=== PATIENT | male | born 1995 | race Hispanic/Latino ===

== ENCOUNTER 2018-06-27 12:42 | Emergency (ER) | payer OTHER, SELFPAY ==
[2018-06-27] MEDS ORDERED: FLUORESCEIN SODIUM 0.6 MG/WRAP ONE ×2 (13:14→13:34)
[2018-06-27] MEDS ORDERED: TETRACAINE HCL 0.5% 2ML OPTH ONE (13:14)
[2018-06-27] MEDS ORDERED: TETANUS & DIPHTHERIA TOX,ADULT 0.5 ML VIAL ONE (13:37)
--- NOTE | 2018-06-27 13:55 | EDPHYS ---
Physician Documentation [facility] Name: Myles Eddy Age: 23 yrs Sex: Male : 1995 Arrival Date: 06/27/2018 Time: 12:45 Bed 23 Private MD: ED Physician Ronald Rice HPI: 06/27 15:37 This 23 yrs old Male presents to ER via Ambulatory with complaints of Eye Pain.pm1 15:37 The patient is experiencing pain, to both eyes, caused by contact lens. Onset: The pm1 symptoms/episode began/occurred this morning. Duration: the symptoms are continuous. Aggravated by nothing. Alleviated by nothing. Associated signs and symptoms: Pertinent negatives: chills, dizziness, ear ache, fever, headache, runny nose. Patient wears soft contacts. Severity of symptoms: in the emergency department the symptoms are worse. The patient has not experienced similar symptoms in the past. Patient slept with his soft contact lens in place and woke up with bilateral eye pain. Left eye worse than right eye. Historical: - Allergies: 13:00 No Known Allergies; aj - Home Meds: 13:00 None [Active]; aj - PMHx: 13:00 None; aj - PSHx: 13:00 None; aj - Immunization history:: Adult Immunizations up to date. - Social history:: Smoking status: Patient uses tobacco products, denies chronic smoking, but will smoke occasionally, Patient uses alcohol, occasionally. - Ebola Screening: : Patient negative for fever greater than or equal to 101.5 degrees Fahrenheit, and additional compatible Ebola Virus Disease symptoms Patient denies exposure to infectious person Patient denies travel to an Ebola-affected area in the 21 days before illness onset No symptoms or risks identified at this time. ROS: 15:37 Constitutional: Negative for fever, chills, and weight loss. pm1 15:37 ENT: Negative for injury, pain, and discharge, Neck: Negative for injury, pain, and swelling, Cardiovascular: Negative for chest pain, palpitations, and edema, Respiratory: Negative for shortness of breath, cough, wheezing, and pleuritic chest pain, Abdomen/GI: Negative for abdominal pain, nausea, vomiting, diarrhea, and constipation, Back: Negative for injury and pain, MS/Extremity: Negative for injury and deformity, Skin: Negative for injury, rash, and discoloration, Neuro: Negative for headache, weakness, numbness, tingling, and seizure. 15:37 Eyes: Positive for pain, of the right eye and left eye. Exam: 15:37 Visual Acuity: I have reviewed the nursing documentation. pm1 15:37 Constitutional: This is a well developed, well nourished patient who is awake, alert, and in no acute distress. Head/Face: Normocephalic, atraumatic. 15:37 ENT: Nares patent. No nasal discharge, no septal abnormalities noted. Tympanic membranes are normal and external auditory canals are clear. Oropharynx with no redness, swelling, or masses, exudates, or evidence of obstruction, uvula midline. Mucous membranes moist. Neck: Trachea midline, no thyromegaly or masses palpated, and no cervical lymphadenopathy. Supple, full range of motion without nuchal rigidity, or vertebral point tenderness. No Meningismus. Chest/axilla: Normal chest wall appearance and motion. Nontender with no deformity. No lesions are appreciated. Cardiovascular: Regular rate and rhythm with a normal S1 and S2. No gallops, murmurs, or rubs. Normal PMI, no JVD. No pulse deficits. Respiratory: Lungs have equal breath sounds bilaterally, clear to auscultation and percussion. No rales, rhonchi or wheezes noted. No increased work of breathing, no retractions or nasal flaring. Abdomen/GI: Soft, non-tender, with normal bowel sounds. No distension or tympany. No guarding or rebound. No evidence of tenderness throughout. Back: No spinal tenderness. No costovertebral tenderness. Full range of motion. Skin: Warm, dry with normal turgor. Normal color with no rashes, no lesions, and no evidence of cellulitis. MS/ Extremity: Pulses equal, no cyanosis. Neurovascular intact. Full, normal range of motion. 15:37 Eyes: Periorbital structures: appear normal, Pupils: no acute changes, equal, round, and reactive to light and accomodation, Extraocular movements: no acute changes, Conjunctiva: injected, bilaterally, Corneas: abrasion, that is small, on the left, at 9 o'clock, foreign body, is not appreciated, a fluorescein strip employed to appreciate the findings, Sclera: no appreciated abnormality, Anterior chamber: normal, Lids and lashes: appear normal. 15:37 Neuro: Orientation: is normal, Motor: is normal, Sensation: is normal, no obvious gross deficits. Vital Signs: 13:00 BP 163 / 85; Pulse 91; Resp 16; Temp 97.2; Pulse Ox 99% on R/A; Weight 117.93 kg; aj Height 5 ft. 11 in. (180.34 cm); 14:16 BP 143 / 101; Pulse 93; Resp 18; Pulse Ox 99% on R/A; tl3 13:00 Body Mass Index 36.26 (117.93 kg, 180.34 cm) aj Visual Acuity: 13:41 Left Eye Visual acuity 20/40, ; Right Eye Visual acuity 20/40, ; Both Eyes Visual tl3 acuity 20/30; Without Lenses; MDM: 13:10 Patient medically screened. pm1 13:51 Data reviewed: vital signs. Data interpreted: Pulse oximetry: on room air is 99 %. pm1 Interpretation: normal. Counseling: I had a detailed discussion with the patient and/or guardian regarding: the historical points, exam findings, and any diagnostic results supporting the discharge/admit diagnosis, the need for outpatient follow up, for definitive care, an opthalmologist. 06/27 13:26 Order name: Visual Acuity; Complete Time: 13:41 pm1 06/27 13:26 Order name: Eye Tray; Complete Time: 13:35 pm1 Administered Medications: 13:19 Drug: Tetracaine Drops 0.5 % 1 drops Route: Ophthalmic; Site: both eyes; tl3 13:36 Follow up: Response: Marked relief of symptoms tl3 13:25 Drug: Fluorescein Strip 1 strip Route: Ophthalmic; Site: both eyes; tl3 13:37 Follow up: Response: No adverse reaction tl3 13:35 Drug: Tetanus-Diphtheria Toxoid Adult 0.5 ml {Product Merchandiser: [employer] ([address] Exp: tl3 08/28/2020. Lot #: [id number]. } Route: IM; Site: left deltoid; 13:36 Follow up: Response: No adverse reaction tl3 Disposition: 16:02 Co-signature as Attending Physician, Ronald Rice MD. rn Disposition: 06/27/18 13:54 Discharged to Home. Impression: Injury of conjunctiva and corneal abrasion without foreign body, left eye. - Condition is Stable. - Discharge Instructions: Corneal Abrasion. - Prescriptions for Tylenol- Codeine #3 300-30 mg Oral Tablet - take 2 tablets by ORAL route every 6 hours As needed; 12 tablet. Vigamox 0.5 % Ophthalmic Drops - instill 1 drop by OPHTHALMIC route every 8 hours for 7 days; 5 milliliter. - Medication Reconciliation Form, Thank You Letter, Antibiotic Education, Prescription Opioid Use, Work release form form. - Follow up: Emergency Department; When: As needed; Reason: Worsening of condition. Follow up: Yehuda French MD; When: 1 - 2 days; Reason: Recheck today's complaints, Continuance of care, Re-evaluation by your physician. - Problem is new. - Symptoms have improved. Signatures: Chari Sainz, RN RN Ronald Knight MD MD rn Marinas, Patrick, STAGE PRODUCER STAGE PRODUCER pm1 Mala Celaya RN RN tl3 Corrections: (The following items were deleted from the chart) 14:18 13:54 06/27/2018 13:54 Discharged to Home. Impression: Injury of conjunctiva and tl3 corneal abrasion without foreign body, left eye. Condition is Stable. Forms are Medication Reconciliation Form, Thank You Letter, Antibiotic Education, Prescription Opioid Use. Follow up: Emergency Department; When: As needed; Reason: Worsening of condition. Follow up: Yehuda French; When: 1 - 2 days; Reason: Recheck today's complaints, Continuance of care, Re-evaluation by your physician. Problem is new. Symptoms have improved. pm1
--- NOTE | 2018-06-27 13:55 | ER ---
Nurse's Notes [facility] Name: Myles Eddy Age: 23 yrs Sex: Male : 1995 Arrival Date: 06/27/2018 Time: 12:45 Bed 23 Private MD: Diagnosis: Injury of conjunctiva and corneal abrasion without foreign body, left eye Presentation: 06/27 12:59 Presenting complaint: Patient states: Bilateral eye discomfort and redness since this aj AM. "I fell asleep with my contacts in and now my eyes burn.". Transition of care: patient was not received from another setting of care. Mechanism of Injury: No Mechanism of Injury. The patient denies any loss of vision. Onset of symptoms was June 27, 2018. Risk Assessment: Do you want to hurt yourself or someone else? Patient reports no desire to harm self or others. Initial Sepsis Screen: Does the patient meet any 2 criteria? No. Patient's initial sepsis screen is negative. Does the patient have a suspected source of infection? No. Patient's initial sepsis screen is negative. Care prior to arrival: None. 12:59 Method Of Arrival: Ambulatory 12:59 Acuity: SAMINA 4 aj Triage Assessment: 13:00 General: Appears in no apparent distress. comfortable, Behavior is calm, cooperative, aj appropriate for age. Pain: Complains of pain in right eye and left eye. EENT: Sclera/Cornea are reddened in outer aspect of conjuctiva of right eye, iris of right eye, inner aspect of conjuctiva of right eye, outer aspect of conjuctiva of left eye, iris of left eye and inner aspect of conjunctiva of left eye Reports pain in right eye and left eye. Neuro: Level of Consciousness is awake, alert, obeys commands, Oriented to person, place, time, situation, Appropriate for age. Respiratory: Airway is patent Respiratory effort is even, unlabored, Respiratory pattern is regular, symmetrical. Derm: Skin is intact, is healthy with good turgor, Skin is pink, warm \\T\\ dry. normal. Historical: - Allergies: 13:00 No Known Allergies; aj - Home Meds: 13:00 None [Active]; aj - PMHx: 13:00 None; aj - PSHx: 13:00 None; aj - Immunization history:: Adult Immunizations up to date. - Social history:: Smoking status: Patient uses tobacco products, denies chronic smoking, but will smoke occasionally, Patient uses alcohol, occasionally. - Ebola Screening: : Patient negative for fever greater than or equal to 101.5 degrees Fahrenheit, and additional compatible Ebola Virus Disease symptoms Patient denies exposure to infectious person Patient denies travel to an Ebola-affected area in the 21 days before illness onset No symptoms or risks identified at this time. Screenin:20 Abuse screen: Denies threats or abuse. Nutritional screening: No deficits noted. tl3 Tuberculosis screening: No symptoms or risk factors identified. Fall Risk None identified. Assessment: 13:13 General: Appears uncomfortable, well groomed, well developed, well nourished, Behavior tl3 is calm, cooperative, appropriate for age. Pain: Complains of pain in inner aspect of conjunctiva of left eye and outer aspect of conjuctiva of left eye and inner aspect of conjuctiva of right eye and outer aspect of conjuctiva of right eye. Pain: Pain began 1 day ago. Neuro: No deficits noted. Level of Consciousness is awake, alert, obeys commands, Oriented to person, place, time, situation, Appropriate for age. Cardiovascular: Patient's skin is warm and dry. Respiratory: Airway is patent. GI: No signs and/or symptoms were reported involving the gastrointestinal system. : No signs and/or symptoms were reported regarding the genitourinary system. EENT: Eyes are tearing on outer aspect of conjuctiva of right eye, inner aspect of conjuctiva of right eye, outer aspect of conjuctiva of left eye and inner aspect of conjunctiva of left eye Reports slept with contacts in, removed yesterday and eyes are still painful. Derm: No signs and/or symptoms reported regarding the dermatologic system. Musculoskeletal: No signs and/or symptoms reported regarding the musculoskeletal system. 14:16 Reassessment: Patient appears in no apparent distress at this time. Patient and/or tl3 family updated on plan of care and expected duration. Pain level reassessed. Patient is alert, oriented x 3, equal unlabored respirations, skin warm/dry/pink. Vital Signs: 13:00 BP 163 / 85; Pulse 91; Resp 16; Temp 97.2; Pulse Ox 99% on R/A; Weight 117.93 kg; aj Height 5 ft. 11 in. (180.34 cm); 14:16 BP 143 / 101; Pulse 93; Resp 18; Pulse Ox 99% on R/A; tl3 13:00 Body Mass Index 36.26 (117.93 kg, 180.34 cm) Visual Acuity: 13:41 Left Eye Visual acuity 20/40, ; Right Eye Visual acuity 20/40, ; Both Eyes Visual tl3 acuity 20/30; Without Lenses; ED Course: 12:45 Patient arrived in ED. rg4 13:00 Triage completed. aj 13:00 Arm band placed on right wrist. Patient placed in waiting room, Patient notified of wait time. 13:05 Curtis Zuniga NP is PHCP. pm1 13:05 Ronald Rice MD is Attending Physician. pm1 13:13 Mala Celaya RN is Primary Nurse. tl3 13:20 Patient has correct armband on for positive identification. Bed in low position. tl3 13:20 No provider procedures requiring assistance completed. Patient did not have IV access tl3 during this emergency room visit. 13:54 Yehuda French MD is Referral Physician. 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 Exp: tl3 08/28/2020. Lot #: [id number]. } Route: IM; Site: left deltoid; 13:36 Follow up: Response: No adverse reaction tl3 Outcome: 13:54 Discharge ordered by MD. pm1 14:16 Discharged to home ambulatory. tl3 14:16 Condition: stable 14:16 Discharge instructions given to patient, Instructed on discharge instructions, follow up and referral plans. medication usage, Demonstrated understanding of instructions, follow-up care, medications, Prescriptions given X 2. 14:18 Patient left the ED. tl3 Signatures: Chari Sainz RN RN aj Marinas, Patrick, NP TEST DRIVER pm1 Eli Quiroz rg4 Mala Celaya RN RN tl3 Corrections: (The following items were deleted from the chart) 13:19 13:18 Fluorescein Strip 1 strip Ophthalmic in both eyes tl3 tl3
== END 2018-06-27 14:18 | disposition home or self-care (01) ==
LOC: ER 12:42
DX: S05.02XA Injury of conjunctiva and corneal abrasion without foreign body, left eye, initial encounter (principal); X58.XXXA Exposure to other specified factors, initial encounter; Y93.89 Activity, other specified; Y92.009 Unspecified place in unspecified non-institutional (private) residence as the place of occurrence of the external cause; Z23 Encounter for immunization
CPT/HCPCS: 90714; 99283

== ENCOUNTER 2019-01-14 17:42 | Emergency (ER) | payer SELFPAY ==
[2019-01-14 18:44] LABS: Absolute Lymphocytes (CBC) 2.8 K/uL (0.7-4.9); Absolute Monocytes 0.5 K/uL (0.1-1.3); Absolute Neutrophil 8.5 K/uL (1.8-8.0); Basophils % 0.8 % (0-1.3); Eosinophils % 1.3 % (0-4.4); Hematocrit 47.9 % (39.6-49.0); Lymphocytes % 23.1 % (15.3-44.8); MPV 9.1 fL (7.6-11.3); Monocytes % 4.1 % (3.3-12.3)
--- NOTE | 2019-01-14 18:45 | RAD REPORT ---
EXAM DESCRIPTION: Serena Single View01/14/2019 6:23 pm CLINICAL HISTORY: cough COMPARISON: none FINDINGS: The lungs appear clear of acute infiltrate. The heart is normal size IMPRESSION: No acute abnormalities displayed
[2019-01-14 19:16] LABS: BUN Blood Urea Nitrogen 7 mg/dL (7-18); Bicarbonate 30 mmol/L (21-32); Glucose Level 224 mg/dL (74-106); NT PRO-BNP 10 pg/mL (<125); Potassium 3.9 mmol/L (3.5-5.1); Sodium Level 140 mmol/L (136-145)
--- NOTE | 2019-01-14 19:26 | ER ---
Nurse's Notes [facility] Name: Myles Eddy Age: 23 yrs Sex: Male : 1995 Arrival Date: 01/14/2019 Time: 17:44 Bed 30 Private MD: Diagnosis: Acute bronchitis;Essential (primary) hypertension Presentation: 01/14 17:46 Presenting complaint: Patient states: Cough for 1 month with sore throat. Transition of care: patient was not received from another setting of care. Onset of symptoms was December 18, 2018. Risk Assessment: Do you want to hurt yourself or someone else? Patient reports no desire to harm self or others. Initial Sepsis Screen: Does the patient meet any 2 criteria? No. Patient's initial sepsis screen is negative. Does the patient have a suspected source of infection? No. Patient's initial sepsis screen is negative. Care prior to arrival: None. 17:46 Method Of Arrival: Ambulatory 17:46 Acuity: SAMINA 3 aj Triage Assessment: 17:48 General: Appears in no apparent distress. comfortable, Behavior is calm, cooperative, aj appropriate for age. Pain: Denies pain. EENT: Reports pain when swallowing. Neuro: Level of Consciousness is awake, alert, obeys commands, Oriented to person, place, time, situation, Appropriate for age. Respiratory: Airway is patent Respiratory effort is even, unlabored, Respiratory pattern is regular, symmetrical. Respiratory: Reports cough that is productive. Derm: Skin is intact, is healthy with good turgor, Skin is pink, warm \T\ dry. normal. Historical: - Allergies: 17:48 No Known Allergies; aj - Home Meds: 17:48 None [Active]; aj - PMHx: 17:48 None; aj - PSHx: 17:48 None; aj - Immunization history:: Adult Immunizations up to date. - Social history:: Smoking status: Patient uses tobacco products, smokes one-half pack cigarettes per day. - Ebola Screening: : Patient negative for fever greater than or equal to 101.5 degrees Fahrenheit, and additional compatible Ebola Virus Disease symptoms Patient denies exposure to infectious person Patient denies travel to an Ebola-affected area in the 21 days before illness onset No symptoms or risks identified at this time. Screenin:55 Abuse screen: Denies threats or abuse. Denies injuries from another. Nutritional rv screening: No deficits noted. Tuberculosis screening: No symptoms or risk factors identified. Fall Risk None identified. Assessment: 17:54 General: Appears in no apparent distress. comfortable, Behavior is calm, cooperative. rv Pain: Denies pain. Neuro: Level of Consciousness is awake, alert, obeys commands, Oriented to person, place, time, situation. Cardiovascular: Capillary refill < 3 seconds. Respiratory: Airway is patent Parent/caregiver reports the patient having cough that is persistent. GI: No signs and/or symptoms were reported involving the gastrointestinal system. : No signs and/or symptoms were reported regarding the genitourinary system. EENT: Reports pain sore throat. Derm: Skin is intact. Musculoskeletal: No signs and/or symptoms reported regarding the musculoskeletal system. Vital Signs: 17:48 BP 153 / 87; Pulse 116; Resp 18; Temp 98.2; Pulse Ox 99% on R/A; Weight 127.01 kg; aj Height 5 ft. 11 in. (180.34 cm); 18:00 BP 149 / 106 LA; Pulse 125; Resp 18 S; Pulse Ox 95% on R/A; rv 18:36 BP 152 / 110 LA Sitting; Pulse 120; Resp 21 S; Pulse Ox 97% on R/A; rv 19:00 BP 153 / 102 RA Sitting; Pulse 125; Resp 12 S; Pulse Ox 97% on R/A; rv 19:07 BP 149 / 106 LA Sitting; Pulse 118; Resp 13 S; Pulse Ox 96% on R/A; rv 17:48 Body Mass Index 39.05 (127.01 kg, 180.34 cm) ED Course: 17:44 Patient arrived in ED. as 17:48 Triage completed. aj 17:48 Arm band placed on right wrist. Patient placed in an exam room. aj 17:52 Daniel García, JC is Primary Nurse. rv 17:55 Wood Parks MD is Attending Physician. gs 17:55 Patient has correct armband on for positive identification. Bed in low position. Call rv light in reach. Side rails up X 1. Pulse ox on. NIBP on. 18:24 XRAY Chest (1 view) In Process Unspecified. EDMS 18:30 Inserted saline lock: 20 gauge in left antecubital area, using aseptic technique. Blood rv collected. 18:48 EKG done, by ED staff, reviewed by Wood Parks MD. kj1 19:25 Grzegorz Luis DO is Referral Physician. gs 19:35 No provider procedures requiring assistance completed. IV discontinued, intact, rv bleeding controlled, No redness/swelling at site. Pressure dressing applied. Administered Medications: No medications were administered Outcome: 19:25 Discharge ordered by MD. gs 19:35 Discharged to home ambulatory. rv 19:35 Condition: good 19:35 Discharge instructions given to patient, Instructed on discharge instructions, follow up and referral plans. medication usage, Demonstrated understanding of instructions, follow-up care, medications, Prescriptions given X 2. 19:35 Patient left the ED. rv Signatures: Dispatcher [employer] EDChari Jimenez, RN RN Nancy Thornton Gregory, MD MD Daniel García RN RN Majo Mcfarland kj1
--- NOTE | 2019-01-14 19:26 | EDPHYS ---
Physician Documentation [facility] Name: Myles Eddy Age: 23 yrs Sex: Male : 1995 Arrival Date: 01/14/2019 Time: 17:44 Bed 30 Private MD: ED Physician Wood Parks HPI: 01/14 19:19 This 23 yrs old Male presents to ER via Ambulatory with complaints of Cough. gs 19:19 Onset: The symptoms/episode began/occurred 1 month(s) ago. Severity of symptoms: At gs their worst the symptoms were moderate, in the emergency department the symptoms are unchanged. Modifying factors: the symptoms are aggravated by smoke. Associated signs and symptoms: Pertinent positives: fever, today only. The patient has experienced similar episodes in the past, a few times. Historical: - Allergies: 17:48 No Known Allergies; aj - Home Meds: 17:48 None [Active]; aj - PMHx: 17:48 None; aj - PSHx: 17:48 None; aj - Immunization history:: Adult Immunizations up to date. - Social history:: Smoking status: Patient uses tobacco products, smokes one-half pack cigarettes per day. - Ebola Screening: : Patient negative for fever greater than or equal to 101.5 degrees Fahrenheit, and additional compatible Ebola Virus Disease symptoms Patient denies exposure to infectious person Patient denies travel to an Ebola-affected area in the 21 days before illness onset No symptoms or risks identified at this time. ROS: 19:19 All other systems are negative. gs Exam: 19:19 Head/Face: Normocephalic, atraumatic. Eyes: Pupils equal round and reactive to light, gs extra-ocular motions intact. Lids and lashes normal. Conjunctiva and sclera are non-icteric and not injected. Cornea within normal limits. Periorbital areas with no swelling, redness, or edema. ENT: Nares patent. No nasal discharge, no septal abnormalities noted. Tympanic membranes are normal and external auditory canals are clear. Oropharynx with no redness, swelling, or masses, exudates, or evidence of obstruction, uvula midline. Mucous membranes moist. Neck: Trachea midline, no thyromegaly or masses palpated, and no cervical lymphadenopathy. Supple, full range of motion without nuchal rigidity, or vertebral point tenderness. No Meningismus. Chest/axilla: Normal chest wall appearance and motion. Nontender with no deformity. No lesions are appreciated. Respiratory: Lungs have equal breath sounds bilaterally, clear to auscultation and percussion. No rales, rhonchi or wheezes noted. No increased work of breathing, no retractions or nasal flaring. Abdomen/GI: Soft, non-tender, with normal bowel sounds. No distension or tympany. No guarding or rebound. No evidence of tenderness throughout. Back: No spinal tenderness. No costovertebral tenderness. Full range of motion. Skin: Warm, dry with normal turgor. Normal color with no rashes, no lesions, and no evidence of cellulitis. MS/ Extremity: Pulses equal, no cyanosis. Neurovascular intact. Full, normal range of motion. Neuro: Awake and alert, GCS 15, oriented to person, place, time, and situation. Cranial nerves II-XII grossly intact. Motor strength 5/5 in all extremities. Sensory grossly intact. Cerebellar exam normal. Normal gait. 19:19 Constitutional: The patient appears alert, awake. 19:19 Cardiovascular: Rate: tachycardic, Rhythm: regular, Pulses: no pulse deficits are appreciated, Heart sounds: normal, murmur, not appreciated. 19:19 ECG was reviewed by the Attending Physician. Vital Signs: 17:48 BP 153 / 87; Pulse 116; Resp 18; Temp 98.2; Pulse Ox 99% on R/A; Weight 127.01 kg; aj Height 5 ft. 11 in. (180.34 cm); 18:00 BP 149 / 106 LA; Pulse 125; Resp 18 S; Pulse Ox 95% on R/A; rv 18:36 BP 152 / 110 LA Sitting; Pulse 120; Resp 21 S; Pulse Ox 97% on R/A; rv 19:00 BP 153 / 102 RA Sitting; Pulse 125; Resp 12 S; Pulse Ox 97% on R/A; rv 19:07 BP 149 / 106 LA Sitting; Pulse 118; Resp 13 S; Pulse Ox 96% on R/A; rv 17:48 Body Mass Index 39.05 (127.01 kg, 180.34 cm) aj MDM: 18:04 Patient medically screened. 19:19 Differential Diagnosis: Bronchitis Viral Syndrome Pneumonia Other hyperthyroid. Data reviewed: vital signs, nurses notes, lab test result(s), EKG, radiologic studies. Counseling: I had a detailed discussion with the patient and/or guardian regarding: the historical points, exam findings, and any diagnostic results supporting the discharge/admit diagnosis, the presence of at least one elevated blood pressure reading (>120/80) during this emergency department visit, lab results, radiology results, the need for outpatient follow up. Response to treatment: the patient's symptoms have mildly improved after treatment, and as a result, I will discharge patient. 19:24 Special discussion: I have referred the patient to see his PCP for further evaluation gs of high blood pressure. 01/14 18:05 Order name: Basic Metabolic Panel; Complete Time: 19:19 01/14 18:05 Order name: CBC with Diff; Complete Time: 19:12 gs 01/14 18:05 Order name: NT PRO-BNP; Complete Time: 19:19 gs 01/14 18:05 Order name: XRAY Chest (1 view); Complete Time: 19:12 01/14 18:05 Order name: EKG; Complete Time: 18:05 01/14 18:05 Order name: TSH; Complete Time: 19:19 gs 01/14 18:05 Order name: Cardiac monitoring; Complete Time: 18:43 gs 01/14 18:05 Order name: EKG - Nurse/Tech; Complete Time: 18:43 gs 01/14 18:05 Order name: IV Saline Lock; Complete Time: 18:43 gs 01/14 18:05 Order name: Labs collected and sent; Complete Time: 18:43 gs 01/14 18:05 Order name: O2 Per Protocol; Complete Time: 18:43 01/14 18:05 Order name: O2 Sat Monitoring; Complete Time: 18:43 gs EC:19 Rate is 117 beats/min. Rhythm is regular. HI interval is normal. QRS interval is gs normal. QT interval is normal. T waves are Flattened. No ST changes noted. Clinical impression: NSR w/ Non-specific ST/T Changes. Interpreted by me. Administered Medications: No medications were administered Disposition: 01/14/19 19:25 Discharged to Home. Impression: Acute bronchitis, Essential (primary) hypertension. - Condition is Stable. - Discharge Instructions: Acute Bronchitis, Adult, Steps to Quit Smoking, Managing Your Hypertension. - Prescriptions for Prednisone 20 mg Oral Tablet - take 1 tablet by ORAL route once daily for 5 days; 5 tablet. Albuterol Sulfate 90 mcg/actuation - inhale 1-2 puff by INHALATION route every 4-6 hours; 1 Inhaler. - Medication Reconciliation Form, Thank You Letter, Antibiotic Education, Prescription Opioid Use, Work release form form. - Follow up: Private Physician; When: 2 - 3 days; Reason: Re-evaluation by your physician. Follow up: Grzegorz Luis DO; When: 2 - 3 days; Reason: Re-evaluation by your physician. Signatures: Dispatcher [employer] EDChari Jimenez RN RN Wood Segundo MD MD gs Vicente, Ronaldo, RN RN rv Corrections: (The following items were deleted from the chart) 19:35 19:25 01/14/2019 19:25 Discharged to Home. Impression: Acute bronchitis; Essential rv (primary) hypertension. Condition is Stable. Forms are Medication Reconciliation Form, Thank You Letter, Antibiotic Education, Prescription Opioid Use. Follow up: Private Physician; When: 2 - 3 days; Reason: Re-evaluation by your physician. Follow up: Grzegorz Luis; When: 2 - 3 days; Reason: Re-evaluation by your physician. gabriel
--- NOTE | 2019-01-15 10:42 | EKG ---
Test Date: 2019-01-14 Test Time: 18:31:58 Shake Feeder: MARIA LUZ MEASUREMENT RESULTS: Intervals: Rate: 117 MD: 150 QRSD: 88 QT: 310 QTc: 432 Rupert: P: 30 MD: 150 QRS: 69 T: 11 INTERPRETIVE STATEMENTS: Sinus tachycardia Nonspecific T wave abnormality Abnormal ECG No previous ECG available for comparison Electronically Signed On 01-15-19 10:42:20 CDT by Kris Salazar
== END 2019-01-14 19:35 | disposition home or self-care (01) ==
LOC: ER 17:42
DX: J20.9 Acute bronchitis, unspecified (principal); I10 Essential (primary) hypertension; F17.210 Nicotine dependence, cigarettes, uncomplicated
CPT/HCPCS: 36415; 71045; 80048; 83880; 84443; 85025; 93005; 99284

== ENCOUNTER 2019-02-11 20:52 | Emergency (ER) | payer SELFPAY ==
--- NOTE | 2019-02-11 21:29 | EDPHYS ---
Physician Documentation [facility] Name: Myles Eddy Age: 23 yrs Sex: Male : 1995 Arrival Date: 02/11/2019 Time: 20:54 Bed 23 Private MD: ED Physician Wood Parks HPI: 02/11 21:25 This 23 yrs old Male presents to ER via Ambulatory with complaints of Rectal gs Pain. 21:25 The patient presents to the emergency department with bleeding from the rectum/anus, gs that is mild, pain in the rectal area, that is moderate. Onset: The symptoms/episode began/occurred yesterday. Context: the patient has no known special context relating to the rectal area complaint(s). Modifying factors: The symptoms are aggravated by bowel movement. Associate signs and symptoms: Pertinent negatives: abdominal pain, fever, vomiting. The patient has not experienced similar symptoms in the past. The patient has not recently seen a physician. Historical: - Allergies: 20:57 No Known Allergies; lp1 - Home Meds: 20:57 None [Active]; lp1 - PMHx: 20:57 Bronchitis; lp1 - PSHx: 20:57 None; lp1 - Immunization history:: Adult Immunizations up to date. - Social history:: Smoking status: Patient uses tobacco products, denies chronic smoking, but will smoke occasionally. - Ebola Screening: : No symptoms or risks identified at this time. ROS: 21:25 All other systems are negative. gs Exam: 21:25 Head/Face: Normocephalic, atraumatic. Eyes: Pupils equal round and reactive to light, gs extra-ocular motions intact. Lids and lashes normal. Conjunctiva and sclera are non-icteric and not injected. Cornea within normal limits. Periorbital areas with no swelling, redness, or edema. ENT: Nares patent. No nasal discharge, no septal abnormalities noted. Tympanic membranes are normal and external auditory canals are clear. Oropharynx with no redness, swelling, or masses, exudates, or evidence of obstruction, uvula midline. Mucous membranes moist. Neck: Trachea midline, no thyromegaly or masses palpated, and no cervical lymphadenopathy. Supple, full range of motion without nuchal rigidity, or vertebral point tenderness. No Meningismus. Chest/axilla: Normal chest wall appearance and motion. Nontender with no deformity. No lesions are appreciated. Cardiovascular: Regular rate and rhythm with a normal S1 and S2. No gallops, murmurs, or rubs. Normal PMI, no JVD. No pulse deficits. Respiratory: Lungs have equal breath sounds bilaterally, clear to auscultation and percussion. No rales, rhonchi or wheezes noted. No increased work of breathing, no retractions or nasal flaring. Back: No spinal tenderness. No costovertebral tenderness. Full range of motion. Skin: Warm, dry with normal turgor. Normal color with no rashes, no lesions, and no evidence of cellulitis. MS/ Extremity: Pulses equal, no cyanosis. Neurovascular intact. Full, normal range of motion. Neuro: Awake and alert, GCS 15, oriented to person, place, time, and situation. Cranial nerves II-XII grossly intact. Motor strength 5/5 in all extremities. Sensory grossly intact. Cerebellar exam normal. Normal gait. 21:25 Constitutional: The patient appears alert, awake. 21:25 Abdomen/GI: Inspection: abdomen appears normal, Palpation: abdomen is soft and non-tender, in all quadrants, Rectal exam: hemorrhoid(s), external, with inflammation, with pain, without bleeding, without thrombosis. Vital Signs: 20:58 BP 152 / 83; Pulse 93; Resp 18; Temp 97.7(TE); Pulse Ox 98% on R/A; Weight 113.4 kg; lp1 Height 5 ft. 11 in. (180.34 cm); Pain 8/10; 20:58 Body Mass Index 34.87 (113.40 kg, 180.34 cm) lp1 MDM: 21:13 Patient medically screened. gs 21:25 Differential diagnosis: hemorrhoids, fissure. Data reviewed: vital signs, nurses notes. gs Response to treatment: the patient's symptoms have mildly improved after treatment, and as a result, I will discharge patient. Administered Medications: No medications were administered Disposition: 02/11/19 21:29 Discharged to Home. Impression: Hemorrhoids and perianal venous thrombosis. - Condition is Stable. - Discharge Instructions: Hemorrhoids, [id number]. - Prescriptions for lidocaine HCl- hydrocortison ac 3 %-2.5 % (7 gram) Rectal gel - insert 1 applicatorful by RECTAL route 2 times per day; 14 suppository. Colace 100 mg Oral Tablet - take 1 tablet by ORAL route every 12 hours; 14 tablet. - Medication Reconciliation Form, Thank You Letter, Antibiotic Education, Prescription Opioid Use form. - Follow up: Dwain Monte MD; When: 2 - 3 days; Reason: Re-evaluation by your physician. Signatures: Leonor Coon RN RN lp1 Wood Parks MD MD gs Guillermina Richardson RN RN ls4 Corrections: (The following items were deleted from the chart) 21:35 21:29 02/11/2019 21:29 Discharged to Home. Impression: Hemorrhoids and perianal venous ls4 thrombosis. Condition is Stable. Forms are Medication Reconciliation Form, Thank You Letter, Antibiotic Education, Prescription Opioid Use. Follow up: Dr. Dwain Monte; When: 2 - 3 days; Reason: Re-evaluation by your physician. gs
--- NOTE | 2019-02-11 21:29 | ER ---
Nurse's Notes [facility] Name: Myles Eddy Age: 23 yrs Sex: Male : 1995 Arrival Date: 02/11/2019 Time: 20:54 Bed 23 Private MD: Diagnosis: Hemorrhoids and perianal venous thrombosis Presentation: 02/11 20:56 Presenting complaint: Patient states: States he went to the bathroom and when he wiped, lp1 there was blood; "I can feel a bump on the outside of my rectum". Transition of care: patient was not received from another setting of care. Onset of symptoms was February 11, 2019. Risk Assessment: Do you want to hurt yourself or someone else? Patient reports no desire to harm self or others. Initial Sepsis Screen: Does the patient meet any 2 criteria? No. Patient's initial sepsis screen is negative. Does the patient have a suspected source of infection? No. Patient's initial sepsis screen is negative. Care prior to arrival: None. 20:56 Method Of Arrival: Ambulatory lp1 20:56 Acuity: SAMINA 4 lp1 Triage Assessment: 21:03 General: Appears in no apparent distress. Behavior is calm, cooperative. Pain: ls4 Complains of pain in gluteal cleft Pain currently is 8 out of 10 on a pain scale. Neuro: Level of Consciousness is awake, alert, obeys commands, Oriented to person, place, time, situation. Cardiovascular: Patient's skin is warm and dry. Respiratory: Respiratory effort is even, unlabored, Respiratory pattern is regular. GI: Reports rectal bleeding, today when wiping. also feels bump on rectum. Historical: - Allergies: 20:57 No Known Allergies; lp1 - Home Meds: 20:57 None [Active]; lp1 - PMHx: 20:57 Bronchitis; lp1 - PSHx: 20:57 None; lp1 - Immunization history:: Adult Immunizations up to date. - Social history:: Smoking status: Patient uses tobacco products, denies chronic smoking, but will smoke occasionally. - Ebola Screening: : No symptoms or risks identified at this time. Screenin:59 Abuse screen: Denies threats or abuse. Denies injuries from another. Nutritional lp1 screening: No deficits noted. Tuberculosis screening: No symptoms or risk factors identified. Fall Risk None identified. Assessment: 21:27 Reassessment: Patient and/or family updated on plan of care and expected duration. Pain ls4 level reassessed. Patient is alert, oriented x 3, equal unlabored respirations, skin warm/dry/pink. Vital Signs: 20:58 BP 152 / 83; Pulse 93; Resp 18; Temp 97.7(TE); Pulse Ox 98% on R/A; Weight 113.4 kg; lp1 Height 5 ft. 11 in. (180.34 cm); Pain 8/10; 20:58 Body Mass Index 34.87 (113.40 kg, 180.34 cm) lp1 ED Course: 20:54 Patient arrived in ED. am2 20:57 Triage completed. lp1 20:58 Arm band placed on right wrist. lp1 21:02 Guillermina Richardson, JC is Primary Nurse. ls4 21:05 Wood Parks MD is Attending Physician. gs 21:05 Patient has correct armband on for positive identification. Bed in low position. Call ls4 light in reach. Side rails up X 1. Verbal reassurance given. 21:12 No provider procedures requiring assistance completed. Patient did not have IV access ls4 during this emergency room visit. 21:28 Dwain oMnte MD is Referral Physician. Administered Medications: No medications were administered Outcome: 21:29 Discharge ordered by . 21:34 Discharged to home ambulatory. ls4 21:34 Condition: good 21:34 Discharge instructions given to patient, Instructed on discharge instructions, follow up and referral plans. medication usage, Demonstrated understanding of instructions, follow-up care, medications, Prescriptions given X 2. 21:35 Patient left the ED. ls4 Signatures: Leonor Coon, RN RN lp1 Chari Morris am2 Wood Parks MD MD Guillermina Richardson RN RN ls4
== END 2019-02-11 21:35 | disposition home or self-care (01) ==
LOC: ER 20:52
DX: K64.5 Perianal venous thrombosis (principal); K64.9 Unspecified hemorrhoids; Z72.0 Tobacco use
CPT/HCPCS: 99282